=== PATIENT | male | born 1965 | race Caucasian/White ===

== ENCOUNTER 2019-01-04 10:17 | Day surgery (SDC) | payer OTHER ==
[2019-01-01 15:39] VITALS: BMI 29.9
--- NOTE | 2019-01-04 13:35 | OP ---
DATE OF PROCEDURE: 01/04/2019 INDICATION FOR PROCEDURE: Screening for malignant neoplasm of the colon, no family history of colon polyps or colon cancer (average risk). DESCRIPTION OF PROCEDURE: After the risks and benefits were explained to the patient including risks of bleeding, infection, perforation, reactions to anesthesia, aspiration and/or pain, informed consent was obtained. The patient was then taken to the endoscopy suite, where deep sedation was administered via propofol and anesthesia support. Once adequate sedation was achieved, a digital rectal examination was performed followed by introduction of the standard colonoscope into the rectum and advanced to the cecum without difficulty. The quality of the prep was excellent with good visualization of the colonic mucosa achieved. The patient tolerated the procedure well with no immediate perioperative complications. Upon conclusion of the procedure, all equipment was removed from the patient, and the patient was taken to Day Stay in satisfactory condition. FINDINGS: Digital rectal exam, normal. Colon findings: Normal-appearing mucosa was seen at the ileocecal valve and appendiceal orifice. Normal-appearing mucosa was also seen in the cecum, ascending colon, transverse colon, descending colon, sigmoid colon, and rectum. Small internal hemorrhoids were seen on rectal retroflexion. IMPRESSION: 1. Small internal hemorrhoids. 2. Otherwise, normal colonoscopy. RECOMMENDATIONS: 1. I would recommend a repeat colonoscopy in 10 years as part of continued screening for malignant neoplasm of the colon. 2. Follow up in the GI clinic as needed. 3. Would recommend a higher fiber diet given the presence of internal hemorrhoids. Job ID: [id number]
[2019-01-04] MEDS ORDERED: PROPOFOL 200 MG/20 ML VIAL ONE (17:03)
[2019-01-04] MEDS ORDERED: Lidocaine 1% PF 5 ML VIAL ONE (17:03)
== END 2019-01-04 13:40 | disposition home or self-care (01) ==
LOC: SDC 10:17
PROVIDERS: ATTEND Internal Medicine
PROC: 0DJD8ZZ Inspection of Lower Intestinal Tract, Via Natural or Artificial Opening Endoscopic (ICD-10-PCS; principal; 2019-01-04)
DX: Z12.11 Encounter for screening for malignant neoplasm of colon (principal); K64.8 Other hemorrhoids; I10 Essential (primary) hypertension; E78.00 Pure hypercholesterolemia, unspecified; Z79.899 Other long term (current) drug therapy
CPT/HCPCS: J2001; J2704

== ENCOUNTER 2022-02-08 12:44 | Emergency (ER) | payer BC, OTHER ==
[2022-02-08 13:14] LABS: #Eosinphils 0.3 thou/uL (0.0-0.7); #Monocytes 0.6 thou/uL (0.11-0.59); #Neutrophils 3.2 thou/uL (1.40-6.50); %Basophils 0.7 % (0.0-1.0); %Eosinophils 4.5 % (0.0-10.0); %Lymphocytes 32.3 % (21.0-51.0); %Monocytes 9.4 % (0.0-10.0); %Neutrophils 53.2 % (42.0-75.0); Mean Corpuscular HGB CONC 34.8 g/dL (32.0-36.0); Mean Corpuscular Hemoglobin 30.4 pg (27.0-31.0); Mean Corpuscular Volume 87.5 fL (78.0-98.0); Mean Platelet Volume 6.4 fL (7.4-10.4); Platelet Count 196 thou/uL (130-400); RBC Distribution Width 11.5 % (11.5-14.5); Red Blood Cell (RBC) Count 5.26 mill/uL (4.70-6.10); White Blood Cell (WBC) Count 6.1 thou/uL (4.8-10.8)
[2022-02-08] MEDS ORDERED: Aspirin Chewable 81 MG TAB ONE (13:30)
[2022-02-08] MEDS ORDERED: Nitroglycerin 2% Ointment 1 INCH/1 GM Packet ONE (13:30)
[2022-02-08 13:36] LABS: ALT (SGPT) 38 U/L (8-55); AST (SGOT) 23 U/L (5-34); Albumin 4.7 g/dL (3.5-5.0); Alkaline Phosphatase 66 U/L (40-110); Anion Gap 18 mmol/L (10-20); BUN (Urea Nitrogen) 13 mg/dL (8.4-25.7); Bilirubin, Total 0.5 mg/dL (0.2-1.2); Calc. Creatinine Clearance 0 mL/min (70-130); Calcium 9.3 mg/dL (7.8-10.44); Carbon Dioxide 22 mmol/L (22-29); Chloride 106 mmol/L (98-107); Globulin 2.8 g/dL (2.4-3.5); Glucose 149 mg/dL (70-105); Lipase 35 U/L (8-78); Protein, Total 7.5 g/dL (6.0-8.3); Sodium 142 mmol/L (136-145)
[2022-02-08 17:16] LABS: Troponin I 0.015 ng/mL (< 0.028)
== END 2022-02-08 17:37 | disposition home or self-care (01) ==
LOC: ERS 12:44
DX: R07.2 Precordial pain (principal); E78.00 Pure hypercholesterolemia, unspecified; I10 Essential (primary) hypertension; Z79.899 Other long term (current) drug therapy
CPT/HCPCS: 36415; 71045; 80053; 82550; 83690; 84484; 85025; 93005; 94760

== ENCOUNTER 2024-03-10 08:11 | Outpatient (CLI) | payer BC | END 2024-03-10 08:12 | disposition home or self-care (01) | LOC: BICCT 08:11 | PROVIDERS: ATTEND Family Medicine | DX: I10 Essential (primary) hypertension (principal); E11.9 Type 2 diabetes mellitus without complications; E78.5 Hyperlipidemia, unspecified; Z82.49 Family history of ischemic heart disease and other diseases of the circulatory system | CPT/HCPCS: 70496 ==